=== PATIENT | male | born 1960 | race Caucasian/White ===

== ENCOUNTER 2025-05-19 12:11 | Inpatient (IN) | payer OTHER, MEDICAID, SELFPAY ==
[2025-05-19] VITALS (9 sets, daily range): BP systolic 107–181; BP diastolic 83–101; PULSE 80–97; RESP 17–26; TEMP 36.3–36.7; O2SAT 92–98; BMI 28.8; BMI 28.3
--- NOTE | 2025-05-19 13:51 | DI.CT.S_ITS ---
PROCEDURE: CT ABDOMEN PELVIS W CON INDICATIONS: ABD PAIN TECHNIQUE: After the administration of intravenous contrast, axial sections acquired from the lung bases to the pubic symphysis. Coronal and sagittal reformats were performed. For radiation dose reduction, the following was used: automated exposure control, adjustment of mA and/or kV according to patient size. COMPARISON: None. FINDINGS: Image quality: Diagnostic. Lower Chest: Pleural parenchymal bands in the lung bases. ABDOMEN: Liver: No solid mass. Subcentimeter hypoattenuating lesion in segment 3, too small to characterize by CT. Gallbladder: Absent. Biliary ducts: No biliary dilation. Pancreas: Inflammatory changes surrounding the pancreas. Homogeneous enhancement. No ductal dilation. No peripancreatic fluid collection. Spleen: Size is within normal limits. Adrenal Glands: No adrenal nodules. Kidneys and Ureters: No hydronephrosis. No solid mass. No complex renal cystic lesion which requires follow up. Stomach and Bowel: Normal colonic caliber, without significant wall thickening. No significant diverticular disease. Normal appendix. Peritoneum: No abnormal intraperitoneal fluid. No free air. Ventral Wall: No significant ventral hernia. Abdominal Nodes: No retroperitoneal or mesenteric adenopathy by size criteria. Vessels: Aorta and inferior vena cava are normal in size. No venous thrombosis surrounding the pancreas. PELVIS: Pelvic Organs: Unremarkable. Bladder: No bladder wall thickening, accounting for underdistention. Pelvic Nodes: No enlarged lymph nodes. Miscellaneous: No inguinal hernias are seen. Bones: No aggressive osseous abnormality. IMPRESSION: Acute interstitial pancreatitis without vascular complication or acute peripancreatic collection. Dictated by: Stone Lott M.D. on 05/19/2025 at 14:48 Approved by: Stone Lott M.D. on 05/19/2025 at 14:52
--- NOTE | 2025-05-19 13:57 | ED_ITS ---
HPI - Abdominal Pain General Chief Complaint: Abdominal Pain Stated Complaint: abd pain- pancreas problem? Time Seen by Provider: 05/19/25 13:34 Source: patient Mode of arrival: Ambulatory History of Present Illness HPI narrative: 65-year-old gentleman history of cholecystectomy, pancreatitis secondary to alcohol use abuse, last drink yesterday presents with epigastric pain radiating to the back along with multiple bouts of nonbilious nonbloody vomit unable to hold things down. Patient denies chest pain, shortness of breath, cough, diarrhea, urinary symptoms, fever, chills, body aches. Other than what is stated 14 point review of systems negative. Related Data Allergies Allergy/AdvReac Type Severity Reaction Status Date / Time codeine AdvReac Vomiting Verified 05/19/25 13:18 Review of Systems Review of Systems ROS Unobtainable: All systems reviewed & are unremarkable except as noted in HPI and below Patient History Social History Smoking Status: Current some day smoker Smoking Status: Current some day smoker tobacco type: cigarettes Exam Narrative Exam Narrative: GENERAL: [65] year old patient appears stated age. Well-developed patient, in mild distress. HEAD: Atraumatic. Normocephalic. EYES: Pupils equal round and reactive. Extraocular motions intact. No scleral icterus. No injection or drainage. ENT: Nose without bleeding, purulent drainage. Throat without erythema, tonsillar hypertrophy or exudate. Airway patent. NECK: Trachea midline. Non tender CARDIOVASCULAR: Regular rate and rhythm without murmurs, gallops, or rubs. RESPIRATORY: Clear to auscultation. Breath sounds equal bilaterally. No wheezes, rales, or rhonchi. GASTROINTESTINAL: Abdomen soft, epigastric tenderness to palpation, nondistended. EXTREMITIES: No edema or joint tenderness. BACK: Nontender without deformity or crepitance. No flank tenderness. NEURO: AOx3. SKIN: No rash or erythema of visible areas Initial Vital Signs Initial Vital Signs: Vital Signs Temperature 98.1 F 05/19/25 13:17 Pulse Rate 80 05/19/25 13:17 Respiratory Rate 17 05/19/25 13:17 Blood Pressure 158/101 H 05/19/25 13:17 Pulse Oximetry 96 05/19/25 13:17 Oxygen Delivery Method Room Air 05/19/25 13:17 Course Orders Ordered: ED Orders 05/19/25 13:17 EKG-12 Lead Stat 05/19/25 13:51 CT abdomen pelvis w con Stat 05/19/25 14:00 Complete Blood Count AUTO DIFF Stat Comprehensive Metabolic Panel Stat Lipase Stat 05/19/25 15:57 Urine Microscopic Stat Ondansetron HCl (Ondansetron 4 Mg/2 Ml Inj) 4 mg IV NOW PRN PRN Reason: Nausea And Vomiting Ondansetron HCl (Ondansetron 4 Mg Odt) 4 mg PO NOW PRN PRN Reason: Nausea And Vomiting Discontinued Medications Lactated Ringer's (Lactated Ringers) 1,000 mls @ 1,000 mls/hr IV BOLUS ONE Stop: 05/19/25 14:50 Last Admin: 05/19/25 16:05 Dose: 1,000 mls/hr Documented By: CEASAR Vital Signs Vital signs: Vital Signs - 8 hr 05/19/25 13:17 Temperature 98.1 F Pulse Rate 80 Respiratory Rate 17 Blood Pressure 158/101 H Pulse Oximetry 96 Oxygen Delivery Method Room Air MDM - Abdominal Pain Lab Data 05/19/25 14:00 05/19/25 14:00 Labs: Lab Results 05/19/25 05/19/25 Range/Units 14:00 15:57 WBC 8.3 (4.5-11.0) X10^3/uL RBC 4.74 (4.5-5.9) X10^6/uL Hgb 16.0 (13.5-17.5) g/dL Hct 46.3 (41-53) % MCV 97.8 (80-100) fL MCH 33.8 (26-34) PG MCHC 34.6 (30-36) % RDW 14.9 H (11.6-14.8) % Plt Count 197 (150-400) X10^3/uL Neut % (Auto) 66.1 (50-75) % Lymph % (Auto) 22.1 L (25-40) % [place] % (Auto) 9.2 (3-14) % Eos % (Auto) 1.9 L (2-4) % Baso % (Auto) 0.7 (0-2) % Neut # (Auto) 5500 (9778-9643) /uL Lymph # (Auto) 1800 (7421-2828) /uL [place] # (Auto) 800 (0-900) /uL Eos # (Auto) 200 (0-450) /uL Baso # (Auto) 100 (0-100) /uL Sodium 136 L (137-145) mmol/L Potassium 3.2 L (3.4-5.1) mmol/L Chloride 107 (98-107) mmol/L Carbon Dioxide 19 L (22-32) mmol/L BUN 12 (9-20) mg/dL Creatinine 0.79 (0.66-1.25) mg/dL Estimated GFR > 60 (>60) mL/min BUN/Creatinine Ratio 15.2 (6-22) Glucose 111 H (70-99) mg/dL Calcium 9.3 (8.4-10.2) mg/dL Total Bilirubin 1.2 (0.2-1.3) mg/dL AST 44 (17-59) IU/L ALT 52 H (<50) IU/L Alkaline Phosphatase 111 (38-126) U/L Total Protein 7.8 (6.3-8.2) g/dL Albumin 4.5 (3.5-5.0) g/dL Globulin 3.3 (1.7-4.1) g/dL Albumin/Globulin Ratio 1.4 (1.0-2.8) Lipase 2208 H (23-300) U/L Urine RBC None seen (0-5/HPF) Urine WBC None seen (0-5/HPF) Ur Squamous Epith Cells 0-1 /hpf (0-5/HPF) Urine Bacteria None seen (None) Ur Culture Indicated? Cult not indicated Vol Urine Centrifuged 10ml (spun) Point of care testing: Urine Dip Bedside Urine Glucose Negative Bedside Urine Bilirubin - Negative Bedside Urine Ketone + 15 Urine Specific [place] 1.015 Bedside Urine Occult Blood + Bedside Urine pH 6.0 Bedside Urine Protein +/- 15 Bedside Urine Urobilinogen - Negative Bedside Urine Nitrite - Negative Bedside Urine Leukocytes - Negative Esterase Imaging Data CT scan - abdomen/pelvis: Radiologist's Impression: [address] [address] [address] Scan Report Signed Patient: Eduardo Michaud MR#: [id number] : 1960 Acct:[id number] Age/Sex: 65 / M Date of Service: 05/19/25 Loc: ED Accession Number: [id number] Procedure: CT abdomen pelvis w con Ordering Provider: Aravind Hernandes D.O. PROCEDURE: CT ABDOMEN PELVIS W CON INDICATIONS: ABD PAIN TECHNIQUE: After the administration of intravenous contrast, axial sections acquired from the lung bases to the pubic symphysis. Coronal and sagittal reformats were performed. For radiation dose reduction, the following was used: automated exposure control, adjustment of mA and/or kV according to patient size. COMPARISON: None. FINDINGS: Image quality: Diagnostic. Lower Chest: Pleural parenchymal bands in the lung bases. ABDOMEN: Liver: No solid mass. Subcentimeter hypoattenuating lesion in segment 3, too small to characterize by CT. Gallbladder: Absent. Biliary ducts: No biliary dilation. Pancreas: Inflammatory changes surrounding the pancreas. Homogeneous enhancement. No ductal dilation. No peripancreatic fluid collection. Spleen: Size is within normal limits. Adrenal Glands: No adrenal nodules. Kidneys and Ureters: No hydronephrosis. No solid mass. No complex renal cystic lesion which requires follow up. Stomach and Bowel: Normal colonic caliber, without significant wall thickening. No significant diverticular disease. Normal appendix. Peritoneum: No abnormal intraperitoneal fluid. No free air. Ventral Wall: No significant ventral hernia. Abdominal Nodes: No retroperitoneal or mesenteric adenopathy by size criteria. Vessels: Aorta and inferior vena cava are normal in size. No venous thrombosis surrounding the pancreas. PELVIS: Pelvic Organs: Unremarkable. Bladder: No bladder wall thickening, accounting for underdistention. Pelvic Nodes: No enlarged lymph nodes. Miscellaneous: No inguinal hernias are seen. Bones: No aggressive osseous abnormality. IMPRESSION: Acute interstitial pancreatitis without vascular complication or acute peripancreatic collection. MDM Narrative Medical decision making narrative: All lab work vital signs nurse triage note medication list previous ER visits and all imaging studies reviewed. CT abdomen showed acute interstitial pancreatitis doubt vascular complication or acute peripancreatic pancreatic collection. Pt NPO, fluids, K rider. lipase 2208. Potassium 3.2. Case discussed with Dr. Samayoa who has graciously accepted the patient for inpatient admission. Differential diagnosis includes pancreatitis, alcohol withdrawal, use abuse polysubstance. Discharge Plan Departure Patient Disposition: Admitted As Inpatient Clinical Impression: Pancreatitis Qualifiers: Chronicity: acute Pancreatitis type: alcohol induced Acute pancreatitis complication: no infection or necrosis Qualified Code(s): K85.20 - Alcohol induced acute pancreatitis without necrosis or infection Admit Date/Time: 05/19/25 18:10
[2025-05-19 14:08] LABS: Add Manual Diff / Slide Review NO; Hematocrit 46.3 % (41-53); Hemoglobin 16.0 g/dL (13.5-17.5); Lymphocytes Absolute Auto 1800 /uL (1100-4500); Mean Corpuscular HGB Conc 34.6 % (30-36); Mean Corpuscular Hemoglobin 33.8 PG (26-34); Mean Corpuscular Volume 97.8 fL (80-100); Platelet Count 197 X10^3/uL (150-400)
[2025-05-19 14:19] LABS: Alanine Aminotransferase 52 IU/L (<50); Albumin 4.5 g/dL (3.5-5.0); Albumin Globulin Ratio 1.4 (1.0-2.8); Alkaline Phosphatase 111 U/L (38-126); Blood Urea Nitrogen 12 mg/dL (9-20); Calcium 9.3 mg/dL (8.4-10.2); Carbon Dioxide 19 mmol/L (22-32); Chloride 107 mmol/L (98-107); Estimated Glomerular Filt Rate > 60 mL/min (>60); Globulin 3.3 g/dL (1.7-4.1); Glucose 111 mg/dL (70-99); HEMOLYSIS < 15 (0-50); Potassium 3.2 mmol/L (3.4-5.1); Sodium 136 mmol/L (137-145); Total Protein 7.8 g/dL (6.3-8.2)
[2025-05-19 14:28] LABS: Lipase 2208 U/L (23-300)
[2025-05-19] MEDS: LACTATED RINGERS 1,000 ML 1000 ML IV ×2 (16:05→17:29)
[2025-05-19 16:33] LABS: Culture Indicated Urine Cult Not Indicated
[2025-05-19] MEDS: POTASSIUM CHLORIDE IN WATER 10 MEQ/100 ML PIGGYBACK 100 MEQ IV ×3 (17:29→23:05)
[2025-05-19] MEDS: HYDROMORPHONE 1 MG INJ IV (17:30)
--- NOTE | 2025-05-19 18:31 | PM.HP.1 ---
History of Present Illness History of Present Illness Date Patient Seen: 05/19/25 Time Patient Seen: 18:31 Chief complaint: abd pain- pancreas problem? Narrative: Patient was a 65-year-old male with a history of alcohol use disorder. He stopped drinking about 3 weeks ago after being ill with pancreatitis from his report. He also has a history of a remote cholecystectomy. The patient had no alcohol for 3 weeks until yesterday when he would 1 drink. Developed severe epigastric pain which does not radiate to the back. He also has some nausea, no vomiting. No abdominal distention. He denies recent diarrhea, fevers, or chills. He states it was his intent to remain sober at this point. He moved to this area about 6 weeks ago from [place], with his 15-year-old daughter. ED course: The lipase was elevated. [facility] Social History Smoking Status: Current some day smoker Meds Home Medications and Allergies Allergies Allergy/AdvReac Type Severity Reaction Status Date / Time codeine AdvReac Vomiting Verified 05/19/25 13:18 Review of Systems Review of Systems Narrative: All else reviewed and otherwise unremarkable except as noted in the history and physical. Exam Vital Signs (past 8 hours): - 05/19/25 13:17 05/19/25 17:41 05/19/25 17:41 Temperature 98.1 F Pulse Rate 80 96 H Respiratory Rate 17 20 Blood Pressure 158/101 H 181/95 H Pulse Oximetry 96 92 Oxygen Delivery Method Room Air Oxygen Delivery Method Room Air Narrative Exam Narrative: NAD, alert and oriented, fluent speech, calm. Normocephalic skull, EOMI, anicteric sclera, symmetric pupils. Oropharynx unremarkable, no droop. Neck supple, midline trachea, no adenopathy. Lungs clear, normal rate and effort. Heart regular, no murmur gallop or rub. Abdomen is soft, non distended and notable for midepigastric tenderness without guarding or rebound. Extremities are free of edema. Skin is free of rash or lesions. Joints are not swollen or deformed. Judgment appears to be normal. Objective Imaging CT scan - abdomen: Radiologist's impression: Acute interstitial pancreatitis without vascular complication or acute peripancreatic collection. Labs 05/19/25 14:00 05/19/25 14:00 Labs: Laboratory Results - last 24 hr 05/19/25 05/19/25 14:00 15:57 WBC 8.3 RBC 4.74 Hgb 16.0 Hct 46.3 MCV 97.8 MCH 33.8 MCHC 34.6 RDW 14.9 H Plt Count 197 Neut % (Auto) 66.1 Lymph % (Auto) 22.1 L [place] % (Auto) 9.2 Eos % (Auto) 1.9 L Baso % (Auto) 0.7 Neut # (Auto) 5500 Lymph # (Auto) 1800 [place] # (Auto) 800 Eos # (Auto) 200 Baso # (Auto) 100 Sodium 136 L Potassium 3.2 L Chloride 107 Carbon Dioxide 19 L BUN 12 Creatinine 0.79 Estimated GFR > 60 BUN/Creatinine Ratio 15.2 Glucose 111 H Calcium 9.3 Total Bilirubin 1.2 AST 44 ALT 52 H Alkaline Phosphatase 111 Total Protein 7.8 Albumin 4.5 Globulin 3.3 Albumin/Globulin Ratio 1.4 Lipase 2208 H Urine RBC None seen Urine WBC None seen Ur Squamous Epith Cells 0-1 /hpf Urine Bacteria None seen Ur Culture Indicated? Cult not indicated Vol Urine Centrifuged 10ml (spun) Assessment & Plan Assessment & Plan narrative: 1. Alcohol-induced pancreatitis, active. 2. Hypokalemia, active. 3. Alcohol use disorder, active. 4. Hypertension, active. PLAN: -Librium 12.5 t.i.d. -NPO, bowel rest -monitor for evidence of withdrawal -replace potassium -support alcohol cessation Anticipate 1 midnight in the hospital, supports observation status. Full code. Time-Based Coding :: 35 min spent with patient and on the chart (including review of chart, obtaining history, exam, reviewing outside data, placing orders, documenting exam and treatment plan, and counseling patient) on 05/19. Quality MIPS - Admit I confirm the patient?s Advance Care Plan is present, Code status is documented, Surrogate decision maker is in patient?s record [If Yes, STOP here]: Yes MIPS - Meds 'Current medications' to include all prescriptions, [id number] products, herbals, cannabis/cannabidiol products, and vitamin/mineral/dietary (nutritional) supplements. I have utilized all available resources to obtain, update, or review the patient?s current medications. [If Yes, STOP here]: Yes
[2025-05-19] MEDS: SODIUM CHLORIDE 0.9% 1,000 ML 100 ML IV (21:30)
[2025-05-20] MEDS: POTASSIUM CHLORIDE IN WATER 10 MEQ/100 ML PIGGYBACK 100 MEQ IV (00:31)
[2025-05-20 02:59] VITALS: BP 139/88; PULSE 89; RESP 20; TEMP 36.4; O2SAT 94
[2025-05-20 05:30] LABS: Add Manual Diff / Slide Review NO; Hematocrit 42.0 % (41-53); Hemoglobin 14.9 g/dL (13.5-17.5); Lymphocytes Absolute Auto 1400 /uL (1100-4500); Mean Corpuscular HGB Conc 35.4 % (30-36); Mean Corpuscular Hemoglobin 34.7 PG (26-34); Mean Corpuscular Volume 97.8 fL (80-100); Platelet Count 167 X10^3/uL (150-400)
[2025-05-20 05:35] LABS: Lipase 1195 U/L (23-300)
--- NOTE | 2025-05-20 07:52 | P.PN_ITS ---
Subjective Subjective Interval history: S: He feels little bit better, but still having pain in the epigastric region. He was no appetite. No diarrhea. Exam Vital Signs (past 8 hours): - 05/20/25 02:59 Temperature 97.6 F Pulse Rate 89 Respiratory Rate 20 Blood Pressure 139/88 Pulse Oximetry 94 Oxygen Flow Rate 0 Oxygen Delivery Method Room Air Oxygen Flow Rate 0 Narrative Exam Narrative: NAD, alert and oriented. Fluent speech. Lungs are clear, normal rate and effort. Heart is regular, no murmur gallop or rub. Abdomen is soft, non distended. There is minimal epigastric tenderness. Extremities are free of edema. Objective Labs 05/20/25 04:32 05/19/25 14:00 Labs: Laboratory Results - last 24 hr 05/19/25 05/19/25 05/20/25 14:00 15:57 04:32 WBC 8.3 9.1 RBC 4.74 4.29 L Hgb 16.0 14.9 Hct 46.3 42.0 MCV 97.8 97.8 MCH 33.8 34.7 H MCHC 34.6 35.4 RDW 14.9 H 14.6 Plt Count 197 167 Neut % (Auto) 66.1 72.9 Lymph % (Auto) 22.1 L 15.9 L [place] % (Auto) 9.2 9.2 Eos % (Auto) 1.9 L 1.8 L Baso % (Auto) 0.7 0.2 Neut # (Auto) 5500 6600 Lymph # (Auto) 1800 1400 [place] # (Auto) 800 800 Eos # (Auto) 200 200 Baso # (Auto) 100 0 Sodium 136 L Potassium 3.2 L Chloride 107 Carbon Dioxide 19 L BUN 12 Creatinine 0.79 Estimated GFR > 60 BUN/Creatinine Ratio 15.2 Glucose 111 H Calcium 9.3 Total Bilirubin 1.2 AST 44 ALT 52 H Alkaline Phosphatase 111 Total Protein 7.8 Albumin 4.5 Globulin 3.3 Albumin/Globulin Ratio 1.4 Lipase 2208 H 1195 H Urine RBC None seen Urine WBC None seen Ur Squamous Epith Cells 0-1 /hpf Urine Bacteria None seen Ur Culture Indicated? Cult not indicated Vol Urine Centrifuged 10ml (spun) PFSH Social History household members: spouse and children Smoking Status: Current some day smoker alcohol intake: former Assessment & Plan Assessment & Plan narrative: 1. Alcohol-induced pancreatitis, active. 2. Hypokalemia, active. 3. Alcohol use disorder, active. 4. Hypertension, active. PLAN: -Librium 12.5 t.i.d. Continue. -NPO, bowel rest. May feed later today or tomorrow morning depending on his appetite. -monitor for evidence of withdrawal -replace potassium as needed. -support alcohol cessation MIKE: 05/21. Anticipate 1 midnight in the hospital, supports observation status. Full code. Time-Based Coding :: [TOTAL MINUTES] spent with patient and on the chart (including review of chart, obtaining history, exam, reviewing outside data, placing orders, documenting exam and treatment plan, and counseling patient) on [DATE]. Quality VTE Deep Vein Thrombosis/Pulmonary Embolism Present on Admission: No
[2025-05-20 08:00] VITALS: BP 115/81; PULSE 92; RESP 16; TEMP 36.1; O2SAT 94
[2025-05-20] MEDS: MULTIVITAMIN 1 TABLET 1 TAB PO (08:57)
[2025-05-20] MEDS: OXYCODONE IR 5 MG TABLET PO ×2 (09:19→14:23)
[2025-05-20 10:17] LABS: Blood Urea Nitrogen 5 mg/dL (9-20); Calcium 8.6 mg/dL (8.4-10.2); Carbon Dioxide 24 mmol/L (22-32); Chloride 103 mmol/L (98-107); Estimated Glomerular Filt Rate > 60 mL/min (>60); Glucose 99 mg/dL (70-99); HEMOLYSIS 28 (0-50); Magnesium 1.5 mg/dL (1.6-2.3); Potassium 4.3 mmol/L (3.4-5.1); Sodium 134 mmol/L (137-145)
[2025-05-20] MEDS: SODIUM CHLORIDE 0.9% 1,000 ML 100 ML IV ×2 (10:59→20:28)
[2025-05-20 12:00] VITALS: BP 133/89; PULSE 85; RESP 18; TEMP 35.8; O2SAT 95
[2025-05-20] MEDS: MAGNESIUM CHLORIDE 64 MG TABLET 128 MG PO (14:20)
--- NOTE | 2025-05-20 14:54 | CM.DANOTE ---
Patient is a 65 yo male who was admitted OBS Status on 05/19/25 for ETOH/pancreatitis. Pt has MCR and KAREN for insurance and his PCP is not listed. EMR was reviewed. Per MD, pt with hx of ETOH and stopped drinking about 3 weeks ago and then had a drink and developed pancreatitis and admitted for fluids and pain control and currently NPO. MD anticipates possible discharge home tomorrow if stable. SW met bedside with pt and explained role and he confirms he moved from [place] with his 15 yo Dtr (who has some medical needs due to a dx) and his Dtr's mom and they have been between [place] and [facility] since they moved here about a month ago. Pt is independent at baseline, does not use DME for ambulation, and still drives. Pt states they moved from [place] to have more access to medical care and supports as their town in [place] was very remote and small. Pt has been working with [employer] to help pay for the motel they are staying in and pt has already had contact with [facility] as well. Pt had been employed until they moved. Pt confirms that he knows what he needs to do to remain sober and not drink and denies the need for ETOH resources at this time but preference is to establish with PCP at [facility] and no preference for male or female provider and he is hopeful to get his Dtr established at [facility] as well. SW made TCM referral requesting establish care appointment be set up with a provider that is accepting new patients and to contact pt at his confirmed cell phone number. Pt states the motel they are staying at is near the hospital and his Dtr's mom can provide transport for him at d/c. DAVID Crowe Discharge Planning/Care Management CM Discharge Assessment Start: 05/19/25 19:34 Freq: Status: Active Protocol: Document 05/20/25 14:52 BF (Rec: 05/20/25 14:54 BF [id number]) Discharge Planning Assessment Assigned Discharge DAVID Monsalve [employer] Representatives DPOA/Assigned none Designee Name Advance Directives? No Advance Directives No on File History Provided By Patient,Medical Record Has Patient been No admitted in last 30 days? Prior Living Homeless Arrangements Comment Currently staying in a motel and had help through [employer] and working with [facility] Household Members spouse,children Comment Living with 15 yo Dtr and ex Type of Drives own vehicle transporation used prior to admit Independent with ADL Yes 's Is patient alert and Yes oriented? Caregiver for Yes: 15 yo Dtr with medical needs Another Barriers to Yes Discharge Comment Needs to establish with PCP and seeking garage door opener installer housing Discharge Plan Home Transportation States ex can provide transport at d/c Arrangement Referrals Initiated Other Additional Comment Made referral to TCM group to establish with PCP Whiteboard Updated Yes in Patient Room with name and ext. # of International Logistics Coordinator Review Status In Process Please Provide Date 05/20/25 Initial DC Assessment Was Performed Next Review Type Continued Stay Review
[2025-05-20 16:00] VITALS: BP 130/86; PULSE 85; RESP 12; TEMP 36.3; O2SAT 94
[2025-05-20 17:58] LABS: Alanine Aminotransferase 27 IU/L (<50); Albumin 3.7 g/dL (3.5-5.0); Albumin Globulin Ratio 1.3 (1.0-2.8); Alkaline Phosphatase 76 U/L (38-126); Blood Urea Nitrogen 5 mg/dL (9-20); Calcium 8.4 mg/dL (8.4-10.2); Carbon Dioxide 23 mmol/L (22-32); Chloride 104 mmol/L (98-107); Estimated Glomerular Filt Rate > 60 mL/min (>60); Globulin 2.9 g/dL (1.7-4.1); Glucose 87 mg/dL (70-99); HEMOLYSIS < 15 (0-50); Potassium 3.6 mmol/L (3.4-5.1); Sodium 134 mmol/L (137-145); Total Protein 6.6 g/dL (6.3-8.2)
[2025-05-20 20:00] VITALS: BP 127/87; PULSE 88; RESP 18; TEMP 36.5; O2SAT 96
[2025-05-21] VITALS (7 sets, daily range): BP systolic 102–132; BP diastolic 64–79; PULSE 75–96; RESP 16–19; TEMP 35.9–36.3; O2SAT 93–96
[2025-05-21] MEDS: OXYCODONE IR 5 MG TABLET PO ×4 (05:08→22:03)
[2025-05-21] MEDS: SODIUM CHLORIDE 0.9% 1,000 ML 100 ML IV (05:08)
[2025-05-21 05:43] LABS: Add Manual Diff / Slide Review NO; Hematocrit 39.6 % (41-53); Hemoglobin 13.9 g/dL (13.5-17.5); Lymphocytes Absolute Auto 1500 /uL (1100-4500); Mean Corpuscular HGB Conc 35.1 % (30-36); Mean Corpuscular Hemoglobin 34.8 PG (26-34); Mean Corpuscular Volume 99.2 fL (80-100); Platelet Count 146 X10^3/uL (150-400)
[2025-05-21 06:02] LABS: Lipase 349 U/L (23-300)
[2025-05-21 06:38] LABS: Magnesium 1.8 mg/dL (1.6-2.3)
--- NOTE | 2025-05-21 08:59 | P.PN_ITS ---
Subjective Subjective Interval history: Summary: 65-year-old male admitted with alcohol-induced pancreatitis after a 1 day use of drinking. He had been off alcohol for 3 weeks prior but does have a long history of alcohol abuse. 05/19: NPO, IV fluids, analgesia. Lipase 2208 05/20: NPO, IV fluids, analgesia. Lipase 1195 05/21: Lipase 349 S: He is not feel great today, although his abdominal pain is resolved mostly. He was hungry. He has been only having ice chips to this point. He did sleep last night. No withdrawal type symptoms. Exam Vital Signs (past 8 hours): - 05/21/25 04:00 05/21/25 08:00 Temperature 97 F L 96.7 F L Pulse Rate 85 80 Respiratory Rate 18 18 Blood Pressure 102/64 104/72 Pulse Oximetry 93 94 Oxygen Delivery Method Room Air Oxygen Flow Rate 0 Narrative Exam Narrative: NAD, alert and oriented. Fluent speech. Lungs are clear, normal rate and effort. Heart is regular, no murmur gallop or rub. Abdomen is soft, non distended. Extremities are free of edema. Objective Imaging CT scan - abdomen: Radiologist's impression: Acute interstitial pancreatitis without vascular complication or acute peripancreatic collection. Labs 05/21/25 04:55 05/20/25 17:42 Labs: Laboratory Results - last 24 hr 05/20/25 05/20/25 05/21/25 09:50 17:42 04:55 WBC 7.4 RBC 3.99 L Hgb 13.9 Hct 39.6 L MCV 99.2 MCH 34.8 H MCHC 35.1 RDW 14.5 Plt Count 146 L Neut % (Auto) 65.1 Lymph % (Auto) 20.8 L [place] % (Auto) 7.9 Eos % (Auto) 5.8 H Baso % (Auto) 0.4 Neut # (Auto) 4800 Lymph # (Auto) 1500 [place] # (Auto) 600 Eos # (Auto) 400 Baso # (Auto) 0 Sodium 134 L 134 L Potassium 4.3 3.6 Chloride 103 104 Carbon Dioxide 24 23 BUN 5 L 5 L Creatinine 0.81 0.78 Estimated GFR > 60 > 60 BUN/Creatinine Ratio 6.2 6.4 Glucose 99 87 Calcium 8.6 8.4 Magnesium 1.5 L 1.8 Total Bilirubin 1.2 AST 23 ALT 27 Alkaline Phosphatase 76 Total Protein 6.6 Albumin 3.7 Globulin 2.9 Albumin/Globulin Ratio 1.3 Lipase 349 H D PENDING SALE TO [facility] Social History household members: spouse and children Smoking Status: Current some day smoker alcohol intake: former Assessment & Plan Assessment & Plan narrative: 1. Alcohol-induced pancreatitis, active and improving. 2. Hypokalemia, improved. 3. Alcohol use disorder, active. 4. Hypertension, active. PLAN: -Librium 12.5 t.i.d. Continue. -Advance diet. -replace potassium as needed. -support alcohol cessation MIKE: 05/21-05/22. Time-Based Coding :: [TOTAL MINUTES] spent with patient and on the chart (including review of chart, obtaining history, exam, reviewing outside data, placing orders, documenting exam and treatment plan, and counseling patient) on [DATE]. Quality VTE Deep Vein Thrombosis/Pulmonary Embolism Present on Admission: No
[2025-05-21] MEDS: MULTIVITAMIN 1 TABLET 1 TAB PO (11:02)
--- NOTE | 2025-05-21 11:25 | PC.NURSE ---
Patient has been napping most of the morning. Given oxycodone for discomfort, and started on librium this morning. He is tolerating ice chips and complaint with all care. Resting comfortably.
[2025-05-21 17:55] LABS: Alanine Aminotransferase 27 IU/L (<50); Albumin 3.9 g/dL (3.5-5.0); Albumin Globulin Ratio 1.2 (1.0-2.8); Alkaline Phosphatase 81 U/L (38-126); Blood Urea Nitrogen 11 mg/dL (9-20); Calcium 8.6 mg/dL (8.4-10.2); Carbon Dioxide 21 mmol/L (22-32); Chloride 105 mmol/L (98-107); Estimated Glomerular Filt Rate > 60 mL/min (>60); Globulin 3.2 g/dL (1.7-4.1); Glucose 93 mg/dL (70-99); HEMOLYSIS 23 (0-50); Potassium 3.5 mmol/L (3.4-5.1); Sodium 135 mmol/L (137-145); Total Protein 7.1 g/dL (6.3-8.2)
[2025-05-21] MEDS: ZOLPIDEM 5 MG TABLET PO (21:00)
[2025-05-21] MEDS: PANTOPRAZOLE DR 20 MG TABLET PO (21:00)
[2025-05-22 00:50] VITALS: BP 109/74; PULSE 79; RESP 17; TEMP 35.7; O2SAT 97
[2025-05-22 04:44] VITALS: BP 118/74; PULSE 76; RESP 19; TEMP 35.9; O2SAT 96
[2025-05-22] MEDS: PANTOPRAZOLE DR 20 MG TABLET PO (05:57)
--- NOTE | 2025-05-22 07:54 | P.DS_ITS ---
History of Present Illness History of Present Illness Date Patient Seen: 05/22/25 Chief complaint: abd pain- pancreas problem? Narrative: Chief complaint: Abdominal pain secondary to pancreatitis History of present illness: 65-year-old male with a history of alcohol use disorder. He stopped drinking about 3 weeks ago after being ill with pancreatitis from his report. He also has a history of a remote cholecystectomy. The patient had no alcohol for 3 weeks until yesterday when he would 1 drink. Developed severe epigastric pain which does not radiate to the back. He also has some nausea, no vomiting. No abdominal distention. He denies recent diarrhea, fevers, or chills. He states it was his intent to remain sober at this point. He moved to this area about 6 weeks ago from [place], with his 15-year-old daughter. Hospital course: Patient's symptoms of pain resolved overnight patient had no vomiting after beginning his diet although he did have some fecal urgency which is his baseline and has been for the past 10 years. Patient is to follow up to establish with a primary care physician and refer for Gastroenterology Physical examination patient is in no acute distress abdomen is nontender no labored respirations 35 minutes were involved in the management this patient including [id number] evaluation physical examination review of laboratory data and imaging and prescription Discharge Providers Provider Date of admission: 05/21/25 15:34 Discharge Date: 05/22/25 Discharge provider: Koko Solis MD Exam Vital Signs (past 8 hours): - 05/22/25 00:50 05/22/25 04:44 Temperature 96.3 F L 96.7 F L Pulse Rate 79 76 Respiratory Rate 17 19 Blood Pressure 109/74 118/74 Pulse Oximetry 97 96 Oxygen Flow Rate 0 0 Oxygen Delivery Method Room Air Oxygen Flow Rate 0 Objective Labs 05/21/25 04:55 05/21/25 17:18 Labs: Laboratory Results - last 24 hr 05/21/25 17:18 Sodium 135 L Potassium 3.5 Chloride 105 Carbon Dioxide 21 L BUN 11 Creatinine 0.74 Estimated GFR > 60 BUN/Creatinine Ratio 14.9 Glucose 93 Calcium 8.6 Total Bilirubin 0.8 AST 32 ALT 27 Alkaline Phosphatase 81 Total Protein 7.1 Albumin 3.9 Globulin 3.2 Albumin/Globulin Ratio 1.2 [facility] Social History household members: spouse and children Smoking Status: Current some day smoker alcohol intake: former Discharge Plan Discharge Plan Patient Disposition: Home Discharge orders & Medications Prescriptions: New chlordiazepoxide HCl 10 mg Capsule 10 mg PO TID Qty: 6 0RF Continued zolpidem [Ambien] 5 mg tablet 5 mg PO BEDTIME omeprazole 20 mg capsule,delayed release(DR/EC) 20 mg PO DAILY Visit Report/Discharge Packet Stand Alone Forms: Patient Portal/API, Stroke Signs & Symptoms Quality VTE Deep Vein Thrombosis/Pulmonary Embolism Present on Admission: No
[2025-05-22 08:00] VITALS: BP 114/75; PULSE 77; RESP 19; TEMP 35.9; O2SAT 93
[2025-05-22] MEDS: MULTIVITAMIN 1 TABLET 1 TAB PO (08:08)
--- NOTE | 2025-05-22 08:19 | PC.NURSE ---
Patient denies pain, he is eating breakfast and tolerating this well.
--- NOTE | 2025-05-22 15:59 | CM.DPC ---
DCP Discharge Home Per MD, pt is medically stable to discharge home today with outpt f/u and anticipate that pt could benefit from PCP and community resources. Pt already in contact with [facility] and [place]. [facility] working to get pt appointment to establish with PCP. Per Rn, dc instructions provided and pt's ride arrived and taken to POV and no concerns noted. DAVID Crowe
== END 2025-05-22 10:52 | disposition home or self-care (01) | DRG 440 ==
LOC: ED 13:34 → AC 18:11
PROVIDERS: Admitting Provider Hospitalist; Emergency Provider Family Medicine; Referring Provider Family Medicine; Visit Provider Hospitalist
DX: K85.20 Alcohol induced acute pancreatitis without necrosis or infection (principal); F10.90 Alcohol use, unspecified, uncomplicated; F17.200 Nicotine dependence, unspecified, uncomplicated; E87.6 Hypokalemia; I10 Essential (primary) hypertension; Z90.49 Acquired absence of other specified parts of digestive tract
CPT/HCPCS: 36415; 74177; 80048; 80053; 81003; 81015; 83690; 83735; 85025; 96361; 96365; 96366; 96375; 99284; G0378; J1171; Q9967